=== PATIENT | female | born 1965 | race Hispanic/Latino ===

== ENCOUNTER → 2025-09-02 | Day surgery (SDC) | payer BC ==
[2025-08-31 16:33] LABS: BASOPHILS % 0.8 % (0.0-1.0); EOSINOPHILS % 1.9 % (0.0-6.0); LYMPHOCYTES % 32.9 % (18.0-39.1); MONOCYTES % 6.3 % (4.4-11.3); NEUTROPHILS % 57.7 % (38.7-80.0); RED CELL DISTRIBUTION WIDTH 11.9 % (11.7-14.4)
[2025-08-31 16:54] LABS: EST GLOMERULAR FILTRATION RATE 75.0 ML/MIN (>=60)
[~2025-09-02] MED LIST: ACETAMINOPHEN 1000 MG/100 ML 100 ML IV ONE; DEXAMETHASONE SOD PHOS INJ 4 MG/ML SDV ONE; FENTANYL CITRATE/PF 100MCG/2 ML INJ ONE; LIDOCAINE HCL 2% LOCAL INJ 5 ML SDV VIAL INJ ONE; METOCLOPRAMIDE HCL 10 MG/2ML VIAL ONE; MIDAZOLAM HCL 2 MG/2 ML VIAL ONE; ONDANSETRON HCL INJ 2MG/ML 2ML 2 MG/ML VIAL ONE; PROPOFOL IV EMULSION 10 MG/ML 20 ML VIAL ONE; SEVOFLURANE INHAL SOLN 250 ML PEN BTL ONE; TRAZODONE HCL50 MG PO
[2025-09-02] MEDS: CEFAZOLIN SODIUM 2 GM ONE (06:01)
[2025-09-02] MEDS: LACTATED RINGER'S 1,000 ML ONE (06:01)
[2025-09-02 08:22] VITALS: TEMP 98
[2025-09-02 12:00] VITALS: BP 104/58; PULSE 69; RESP 18; O2SAT 99
== END | disposition home or self-care (01) ==
LOC: OR 05:17
PROVIDERS: ATTEND Podiatrist Foot Surgery
DX: S93.321A Subluxation of tarsometatarsal joint of right foot, initial encounter (principal); Q66.211 Congenital metatarsus primus varus, right foot; M20.41 Other hammer toe(s) (acquired), right foot; M24.574 Contracture, right foot; K21.9 Gastro-esophageal reflux disease without esophagitis; F41.9 Anxiety disorder, unspecified; X58.XXXA Exposure to other specified factors, initial encounter; Z01.810 Encounter for preprocedural cardiovascular examination; Z01.812 Encounter for preprocedural laboratory examination
CPT/HCPCS: 28270; 28285 ×2; 28297; 36415; 71046; 73620; 80048; 85025; 93005; C1713 ×2; J0131; J1100; J2003; J2250; J2405; J2704; J2765; J3010; J7121